=== PATIENT | male | born 1985 | race Caucasian/White ===

== ENCOUNTER 2016-11-14 13:47 | Emergency (ER) | payer BC, OTHER ==
[~2016-11-14] VITALS: Ht 188 cm; Wt 83.0 kg
[2016-11-14 13:59] VITALS: BP 138/83; PULSE 85; RESP 22; TEMP 97.6
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
[2016-11-14 16:00] VITALS: BP 103/65; PULSE 50; RESP 12; O2SAT 97
[2016-11-14 17:28] VITALS: BP 101/64
== END 2016-11-14 17:26 | disposition left against medical advice (07) ==
LOC: NEPC 13:47
DX: T40.2X4A Poisoning by other opioids, undetermined, initial encounter (principal); F17.210 Nicotine dependence, cigarettes, uncomplicated; F12.90 Cannabis use, unspecified, uncomplicated; F11.90 Opioid use, unspecified, uncomplicated
CPT/HCPCS: 99284